=== PATIENT | male | born 1995 | race Caucasian/White ===

== ENCOUNTER 2025-05-29 13:34 | Emergency (ER) | payer OTHER, SELFPAY ==
--- OUTSIDE RECORDS SUMMARY | 2025-05-29 13:38 | XMS_ITS | Clinical Summary ---
Author Organization [facility] Address [address] [place] [address] Phone Care Team Providers Care [place] Hand Name Role Phone Unavailable Primary Care Provider Unavailabl e Allergies Active Allergy Reactions Criticality Noted Date Comments Morphine Other (see Comments) Reduces heart rate Medications Doxycycline Monohydrate 100 MG Tablet 100 mg BID for 7 days 14 Tab 07/27/2017 Active Active Problems No known active problems Family History Medical History Relation Name Comments Cancer Maternal Grandfather Diabetes Paternal Grandfather Diabetes Paternal Grandmother Relation Name Status Comments Maternal Grandfather Paternal Grandfather Paternal Grandmother Social History Tobacco Use Types Packs/Day Years Used Date Smoking Tobacco: Every Day Cigarettes Smokeless Tobacco: Never Tobacco Cessation:Ready to Q uit: Yes; Counseling Given: Yes Alcohol Use Standard Drinks/Week Comments Yes 0 (1 standard drink = 0.6 oz pur e alcohol) socially Sexually Active Control Partners Comments Yes Male Condom Female Sex and Gender Information Value Date Recorded Sex Assigned at Not on file Legal Sex Male 11:50 PM CDT Gender Identity Not on file Sexual Orientation Not on file Last Filed Vital Signs Vital Sign Reading Time Taken Comments Blood Pressure 110/66 07/26/2017 3:35 PM CDT Pulse 80 07/26/2017 3:35 PM CDT Temperature 37.8 C (100.1 F) 07/26/2017 3:35 PM CDT Respiratory Rate 18 07/26/2017 3:35 PM CDT Oxygen Saturation 97% 07/26/2017 3:35 PM CDT Inhaled Oxygen Concentration - - Weight 54.4 kg (120 lb) 07/26/2017 3:35 PM CDT Height 172.7 cm (5' 8) 07/26/2017 3:35 PM CDT Body Mass Index 18.25 07/26/2017 3:35 PM CDT Plan of Treatment Health Maintenance Due Date Last Done Comments Hepatitis C Virus (HCV) Screening 1995 TdaP Immunization 1995 Human Papillomavirus (HPV) Immunization (1 - Male 3-dose series) 2010 Hepatitis B Immunization (1 of 3 - 19+ 3-dose series) 2014 SARS-COV-2 Immunization ( - 2023- season) 2024 Influenza Immunization (Seas on Ended) 2025 Respiratory Syncytial Virus (RSV) Immunization (Adult) (1 - 1-dose 75+ series) 2070 Meningococcal Immunization (ACWY) Aged Out No longer eligible based on patient's age to complete this topic Pneumococcal Immunization Combined Aged Out No longer eligible based on patient's age to complete this topic Rotavirus Immunization Aged Out No lo nger eligible based on patient's age to complete this topic Insurance MEDICAID [employer]
--- OUTSIDE RECORDS SUMMARY | 2025-05-29 13:38 | XMS_ITS | Data Portability ---
Author Organization [facility] Address [address] [place] [address] Assessment No assessment recorded. Plan of Treatment Reminders Order Date Submit Date Provider Last Modified By Organization Details Last Modified Time Details Appointments None recorded. Lab CMP, serum or plasma 2022 023 SRINATH WOLFE, [address] [place] [address] [address], [address], [place], [address], 3 15:09:41 chlamydia trachomat is + neisseria gonorrhoe ae + trichomon as vaginalis DNA panel, KENNEY+probe , unspecifi ed specimen 2022 023 LYON MOUNT[place] YANETH, [address] [place], [place] [address]ric[address], [address], [place], [address], 3 15:09:41 urinalysi s complete, reflex culture 2022 023 L[place] YANETH, [address] [place] [address] [address], [address], [place], [address], 3 15:09:43 RPR (rapid plasma reagin), serum 2022 023 [place] YANETH, [address] [place] [address] [address], [address], [place], [address], 3 15:09:46 CBC w/ auto diff 2022 023 L[place] YANETH, [address] [place] [address] [address], [address], [place], [address], 3 15:09:44 TSH, ultra-sen sitive, serum 2022 023 SRINATH WOLFE, [address], [address], [place], [address], 3 15:09:42 HbA1c (hemoglob in A1c), blood 2022 023 SRINATH MARTINO, [address] [facility] [address], [place], [address], 3 15:09:44 HBsAg (hepatiti s B surface Ag), EIA, serum 2022 023 SRINATH MARTINODAR, [address] [place], [place] [address], [address], [place], [address], 3 15:09:45 Hepatitis C IgG Ab, qual, serum 2022 023 SRINATH [facility]ARTINODAR, [address] [facility] [address], [place], [address], 3 15:09:40 HIV 1 + 2, meaningfu l use set 2022 023 SRINATH SANDERSRASHEEDA, [address] [place], [place] [address], [address], [place], [address], 3 15:09:46 CBC 2018 019 SRINATH SANDERSRASHEEDA, [facility] [address], [address], [place], [address], 9 03:05:32 lipid panel, serum 2018 019 SRINATH SANDERSRASHEEDA, [facility] [address], [address], [place], [address], 9 03:05:33 CMP, serum or plasma 2018 019 SRINATH [facility], [address], [address], [place], [address], 9 03:05:33 Referral general surgeon referral - R inguinal hernia, possible umbilical hernia 2022 023 SRINATH Bryant MD, [address] [facility], [address], [place], [address], 3 09:36:00 psychiatr ist referral 2018 019 riley Hyatt MD, [address] [facility] , [address], [place], [address], 9 15:44:45 Procedures None recorded. Surgeries None recorded. Imaging CT, abdomen + pelvis, w/o contrast - Concern for abdominal and inguinal hernia 2022 023 [facility], [address] [facility] , [place], [address], 3 13:12:26 Medication Orders sertralin e 50 mg tablet 2018 019 [id number], [address] [place], [address], 3 11:37:26 Patient TargetsNo targets recorded. Patient Instructions Encounter Date Encounter Id Patient Instructions Last Modified By Organization Details Last Modified Time 12/10/2018 [id number] deciding about using medicines to quit smoking ssuthan Not available 12/10/2018 12:50:24 Quitting Tobacco : Care Instructions ssuthan Not available 12/10/2018 12:50:24 anxiety disorder : care instructions ssuthan Not available 12/10/2018 12:50:24 05/03/2023 [id number] Quitting Tobacco : Care Instructions [email or web address] Not available 05/08/2023 14:29:13 inguinal hernia: care instructions [email or web address] Not available 05/03/2023 12:30:50 HIV testing: car e instructions [email or web address] Not available 05/03/2023 12:30:48 Reason for Referral Psychiatrist Referral for Ge neralized anxiety disorder Referring Physician: Vitor Ramires, Internal Medicine, Encounter Date: 12/10/2018 General Surgeon Referral for Inguinal pain R inguinal hernia, possible umbilical hernia Referring Physician: Keara Brice, Family Medicine, Encounter Date: 05/03/2023 Results Created Date Observation Date Name Description Value Unit Range Abnormal Flag Note LastModifiedBy Organization Detail LastModifiedTime 05/03/2005/04/2023 HCV ANTIB ELBA RFX TO QUANT PCR HCV Ab Non Reacti ve nonrea ctive Not Available [facility] ([facility]) [address] [place], [address], 05/05/2023 15:09:40 05/03/20 23 05/05/2023 CT, NG, TRICH VAG BY KENNEY chlamydia by KENNEY Negati ve negati ve Not Available [facility] ([facility]) [address] [place], [address], 05/05/2023 15:09:41 05/03/20 23 05/05/2023 CT, NG, TRICH VAG BY KENNEY gonococcus by KENNEY Negati ve negati ve Not Available [facility] ([facility]) [address] [place], [address], 05/05/2023 15:09:41 05/03/20 23 05/05/2023 CT, NG, TRICH VAG BY KENNEY trich vag by KENNEY Negati ve negati ve Not Available [facility] ([facility]) [address] [place], [address], 05/05/2023 15:09:41 05/03/20 23 05/04/2023 COMP. METAB OLIC PANEL (14) glucose 105 mg/dL 70-99 above high normal Not Available [facility] ([facility]) [address] [place], [address], 05/05/2023 15:09:41 05/03/20 23 05/04/2023 COMP. METAB OLIC PANEL (14) BUN 11 mg/dL 6-20 Not Available [facility] ([facility]) [address] [place], [address], 05/05/2023 15:09:41 05/03/20 23 05/04/2023 COMP. METAB OLIC PANEL (14) creatinine 0.93 mg/dL 0.76-1 .27 Not Available [facility] ([facility]) [address] [place], [address], 05/05/2023 15:09:41 05/03/20 23 05/04/2023 COMP. METAB OLIC PANEL (14) eGFR 115 mL/mi n/1.7 3 >59 Not Available [facility] ([facility]) [address] [place], [address], 05/05/2023 15:09:41 05/03/20 23 05/04/2023 COMP. METAB OLIC PANEL (14) BUN/creatini ne ratio 12 9-20 Not Available [facility] ([facility]) [address] [facility] [place], [address], 05/05/2023 15:09:41 05/03/20 23 05/04/2023 COMP. METAB OLIC PANEL (14) sodium 141 mmol/ L 134-14 4 Not Available [facility] ([facility]) [address] [facility] [place], [address], 05/05/2023 15:09:41 05/03/20 23 05/04/2023 COMP. METAB OLIC PANEL (14) potassium 4.8 mmol/ L 3.5-5. 2 Not Available [facility] ([facility]) [address] [facility] [place], [address], 05/05/2023 15:09:41 05/03/20 23 05/04/2023 COMP. METAB OLIC PANEL (14) chloride 100 mmol/ L 96-106 Not Available [facility] ([facility]) [address] [facility] [place], [address], 05/05/2023 15:09:41 05/03/20 23 05/04/2023 COMP. METAB OLIC PANEL (14) carbon dioxide, total 23 mmol/ L 20-29 Not Available [facility] ([facility]) [address] [facility] [place], [address], 05/05/2023 15:09:41 05/03/20 23 05/04/2023 COMP. METAB OLIC PANEL (14) calcium 10.1 mg/dL 8.7-10 .2 Not Available [facility] ([facility]) [address] [facility], [place], [address], 05/05/2023 15:09:41 05/03/20 23 05/04/2023 COMP. METAB OLIC PANEL (14) protein, total 7.7 g/dL 6.0-8. 5 Not Available [facility] ([facility]) [address] [place], [address], 05/05/2023 15:09:41 05/03/20 23 05/04/2023 COMP. METAB OLIC PANEL (14) albumin 5.2 g/dL 4.1-5. 2 Not Available [facility] ([facility]) [address] [place], [address], 05/05/2023 15:09:41 05/03/20 23 05/04/2023 COMP. METAB OLIC PANEL (14) globulin, total 2.5 g/dL 1.5-4. 5 Not Available [facility] ([facility]) [address] [place], [address], 05/05/2023 15:09:41 05/03/20 23 05/04/2023 COMP. METAB OLIC PANEL (14) A/G ratio 2.1 1.2-2. 2 Not Available [facility] ([facility]) [address] [facility] [place], [address], 05/05/2023 15:09:41 05/03/20 23 05/04/2023 COMP. METAB OLIC PANEL (14) bilirubin, total 1.6 mg/dL 0.0-1. 2 above high normal Not Available [facility] ([facility]) [address] [place], [address], 05/05/2023 15:09:41 05/03/20 23 05/04/2023 COMP. METAB OLIC PANEL (14) alkaline phosphatase 149 IU/L 44-121 above high normal Not Available [facility] ([facility]) [address] [facility] [place], [address], 05/05/2023 15:09:41 05/03/20 23 05/04/2023 COMP. METAB OLIC PANEL (14) AST (SGOT) 41 IU/L 0-40 above high normal Not Available [facility] ([facility]) [address] [place], [address], 05/05/2023 15:09:41 05/03/20 23 05/04/2023 COMP. METAB OLIC PANEL (14) ALT (SGPT) 30 IU/L 0-44 Not Available [facility] ([facility]) [address] [place], [address], 05/05/2023 15:09:41 05/03/20 23 05/04/2023 TSH RFX ON ABNOR MAL TO FREE T4 TSH 1.860 uIU/m L 0.450- 4.500 Not Available [facility] ([facility]) [address] [place], [address], 05/05/2023 15:09:42 05/03/20 23 05/04/2023 UA/M W/RFL X CULTU RE, ROUTI NE specific gravity 1.017 1.005- 1.030 Not Available [facility] ([facility]) [address] [facility], [place], [address], 05/05/2023 15:09:43 05/03/20 23 05/04/2023 UA/M W/RFL X CULTU RE, ROUTI NE pH 5.5 5.0-7. 5 Not Available [facility] ([facility]) [address] [facility], [place], [address], 05/05/2023 15:09:43 05/03/20 23 05/04/2023 UA/M W/RFL X CULTU RE, ROUTI NE urine-color Yellow yellow Not Available [facility] ([facility]) [address] [facility], [place], [address], 05/05/2023 15:09:43 05/03/20 23 05/04/2023 UA/M W/RFL X CULTU RE, ROUTI NE appearance Clear clear Not Available [facility] ([facility]) [address] [facility], [place], [address], 05/05/2023 15:09:43 05/03/20 23 05/04/2023 UA/M W/RFL X CULTU RE, ROUTI NE WBC esterase Negati ve negati ve Not Available [facility] ([facility]) [address] [facility], [place], [address], 05/05/2023 15:09:43 05/03/20 23 05/04/2023 UA/M W/RFL X CULTU RE, ROUTI NE protein Negati ve negati ve/tra ce Not Available [facility] ([facility]) [address] [place], [address], 05/05/2023 15:09:43 05/03/20 23 05/04/2023 UA/M W/RFL X CULTU RE, ROUTI NE glucose Negati ve negati ve Not Available [facility] ([facility]) [address] [facility], [place], [address], 05/05/2023 15:09:43 05/03/20 23 05/04/2023 UA/M W/RFL X CULTU RE, ROUTI NE ketones Negati ve negati ve Not Available [facility] ([facility]) [address] [facility], [place], [address], 05/05/2023 15:09:43 05/03/20 23 05/04/2023 UA/M W/RFL X CULTU RE, ROUTI NE occult blood Negati ve negati ve Not Available [facility] ([facility]) [address] [facility], [place], [address], 05/05/2023 15:09:43 05/03/20 23 05/04/2023 UA/M W/RFL X CULTU RE, ROUTI NE bilirubin Negati ve negati ve Not Available [facility] ([facility]) [address] [facility], [place], [address], 05/05/2023 15:09:43 05/03/20 23 05/04/2023 UA/M W/RFL X CULTU RE, ROUTI NE urobilinogen ,semi-qn 0.2 mg/dL 0.2-1. 0 Not Available [facility] ([facility]) [address] [place], [address], 05/05/2023 15:09:43 05/03/20 23 05/04/2023 UA/M W/RFL X CULTU RE, ROUTI NE nitrite, urine Negati ve negati ve Not Available [facility] ([facility]) [address] [place], [address], 05/05/2023 15:09:43 05/03/20 23 05/04/2023 UA/M W/RFL X CULTU RE, ROUTI NE microscopic examination Commen t Micro scopi c follo ws if indic ated. Not Available [facility] ([facility]) [address] [place], [address], 05/05/2023 15:09:43 05/03/20 23 05/04/2023 UA/M W/RFL X CULTU RE, ROUTI NE microscopic examination See below: Micro scopi c was indic ated and was perfo rmed. Not Available [facility] ([facility]) [address] [place], [address], 05/05/2023 15:09:43 05/03/20 23 05/04/2023 UA/M W/RFL X CULTU RE, ROUTI NE urinalysis reflex Commen t This speci men will not refle x to a Urine Cultu re. Not Available [facility] ([facility]) [address] [facility], [place], [address], 05/05/2023 15:09:43 05/03/20 23 05/04/2023 HEMOG LOBIN A1C hemoglobin A1C 5.1 % 4.8-5. 6 Predi abete s: 5.7 - 6.4 Diabe haris: >6.4 Glyce fred contr ol for adult s with diabe haris: <7.0 Not Available [facility] ([facility]) [address] [facility], [place], [address], 05/05/2023 15:09:44 05/03/20 23 05/04/2023 CBC WITH DIFFE RENTI AL/PL ATELE T WBC 8.4 x10e3 /uL 3.4-10 .8 Not Available [facility] ([facility]) [address] [place], [address], 05/05/2023 15:09:44 05/03/20 23 05/04/2023 CBC WITH DIFFE RENTI AL/PL ATELE T RBC 5.60 x10e6 /uL 4.14-5 .80 Not Available [facility] ([facility]) [address] [place], [address], 05/05/2023 15:09:44 05/03/20 23 05/04/2023 CBC WITH DIFFE RENTI AL/PL ATELE T hemoglobin 17.0 g/dL 13.0-1 7.7 Not Available [facility] ([facility]) [address] [place], [address], 05/05/2023 15:09:44 05/03/20 23 05/04/2023 CBC WITH DIFFE RENTI AL/PL ATELE T hematocrit 49.8 % 37.5-5 1.0 Not Available [facility] ([facility]) [address] [place], [address], 05/05/2023 15:09:44 05/03/20 23 05/04/2023 CBC WITH DIFFE RENTI AL/PL ATELE T MCV 89 fL 79-97 Not Available [facility] ([facility]) [address] [place], [address], 05/05/2023 15:09:44 05/03/20 23 05/04/2023 CBC WITH DIFFE RENTI AL/PL ATELE T MCH 30.4 pg 26.6-3 3.0 Not Available [facility] ([facility]) [address] [place], [address], 05/05/2023 15:09:44 05/03/20 23 05/04/2023 CBC WITH DIFFE RENTI AL/PL ATELE T MCHC 34.1 g/dL 31.5-3 5.7 Not Available [facility] ([facility]) [address] [place], [address], 05/05/2023 15:09:44 05/03/20 23 05/04/2023 CBC WITH DIFFE RENTI AL/PL ATELE T RDW 13.4 % 11.6-1 5.4 Not Available [facility] ([facility]) [address] [place], [address], 05/05/2023 15:09:44 05/03/20 23 05/04/2023 CBC WITH DIFFE RENTI AL/PL ATELE T platelets 280 x10e3 /uL 150-45 0 Not Available [facility] ([facility]) [address] [facility], [place], [address], 05/05/2023 15:09:44 05/03/20 23 05/04/2023 CBC WITH DIFFE RENTI AL/PL ATELE T neutrophils 56 % notest ab. Not Available [facility] ([facility]) [address] [facility], [place], [address], 05/05/2023 15:09:44 05/03/20 23 05/04/2023 CBC WITH DIFFE RENTI AL/PL ATELE T lymphs 27 % notest ab. Not Available [facility] ([facility]) [address] [facility], [place], [address], 05/05/2023 15:09:44 05/03/20 23 05/04/2023 CBC WITH DIFFE RENTI AL/PL ATELE T monocytes 8 % notest ab. Not Available [facility] ([facility]) [address] [facility], [place], [address], 05/05/2023 15:09:44 05/03/20 23 05/04/2023 CBC WITH DIFFE RENTI AL/PL ATELE T eos 8 % notest ab. Not Available [facility] ([facility]) [address] [facility], [place], [address], 05/05/2023 15:09:44 05/03/20 23 05/04/2023 CBC WITH DIFFE RENTI AL/PL ATELE T basos 1 % notest ab. Not Available [facility] ([facility]) [address] [facility], [place], [address], 05/05/2023 15:09:44 05/03/20 23 05/04/2023 CBC WITH DIFFE RENTI AL/PL ATELE T neutrophils (absolute) 4.8 x10e3 /uL 1.4-7. 0 Not Available [facility] ([facility]) [address] [facility], [place], [address], 05/05/2023 15:09:44 05/03/20 23 05/04/2023 CBC WITH DIFFE RENTI AL/PL ATELE T lymphs (absolute) 2.2 x10e3 /uL 0.7-3. 1 Not Available [facility] ([facility]) [address] [facility], [place], [address], 05/05/2023 15:09:44 05/03/20 23 05/04/2023 CBC WITH DIFFE RENTI AL/PL ATELE T monocytes(ab solute) 0.7 x10e3 /uL 0.1-0. 9 Not Available [facility] ([facility]) [address] [place], [address], 05/05/2023 15:09:44 05/03/20 23 05/04/2023 CBC WITH DIFFE RENTI AL/PL ATELE T eos (absolute) 0.7 x10e3 /uL 0.0-0. 4 above high normal Not Available [facility] ([facility]) [address] [facility], [place], [address], 05/05/2023 15:09:44 05/03/20 23 05/04/2023 CBC WITH DIFFE RENTI AL/PL ATELE T baso (absolute) 0.0 x10e3 /uL 0.0-0. 2 Not Available [facility] ([facility]) [address] [place], [address], 05/05/2023 15:09:44 05/03/20 23 05/04/2023 CBC WITH DIFFE RENTI AL/PL ATELE T immature granulocytes 0 % notest ab. Not Available [facility] ([facility]) [address] [place], [address], 05/05/2023 15:09:44 05/03/20 23 05/04/2023 CBC WITH DIFFE RENTI AL/PL ATELE T immature grans (abs) 0.0 x10e3 /uL 0.0-0. 1 Not Available [facility] ([facility]) [address] [facility], [place], [address], 05/05/2023 15:09:44 05/03/20 23 05/04/2023 HBSAG SCREE N HBsAg screen Negati ve negati ve Not Available [facility] ([facility]) [address] [facility], [place], [address], 05/05/2023 15:09:45 05/03/20 23 05/04/2023 RPR, RFX QN RPR/C ONFIR M TP RPR Non Reacti ve nonrea ctive Not Available [facility] ([facility]) [address] [facility], [place], [address], 05/05/2023 15:09:46 05/03/20 23 05/04/2023 HIV AB/P2 4 AG WITH REFLE X HIV Ab/P24 Ag screen Non Reacti ve nonrea ctive HIV Negat oma HIV-1 /HIV- 2 antib odies and HIV-1 p24 antig en were NOT detec stevie. There is no labor atory evide nce of HIV infec tion. Not Available [facility] ([facility]) [address] [facility], [place], [address], 05/05/2023 15:09:46 05/03/20 23 05/04/2023 MICRO SCOPI C EXAMI NATIO N WBC None seen /hpf 0-5 Not Available [facility] ([facility]) [address] [place], [address], 05/05/2023 15:09:42 05/03/20 23 05/04/2023 MICRO SCOPI C EXAMI NATIO N RBC None seen /hpf 0-2 Not Available [facility] ([facility]) [address] [place], [address], 05/05/2023 15:09:42 05/03/20 23 05/04/2023 MICRO SCOPI C EXAMI NATIO N epithelial cells (non renal) None seen /hpf 0-10 Not Available [facility] ([facility]) [address] [facility], [place], [address], 05/05/2023 15:09:42 05/03/20 23 05/04/2023 MICRO SCOPI C EXAMI NATIO N casts None seen /lpf nonese en Not Available [facility] ([facility]) [address] [facility], [place], [address], 05/05/2023 15:09:42 05/03/20 23 05/04/2023 MICRO SCOPI C EXAMI NATIO N bacteria None seen nonese en/few Not Available [facility] ([facility]) [address] [facility], [place], [address], 05/05/2023 15:09:42 05/03/20 23 05/04/2023 INTER PRETA TION: interpretati on: Commen t Not infec stveie with HCV unles s early or acute infec tion is suspe cted (whic h may be delay ed in an immun ocomp romis ed indiv idual ), or other evide nce exist s to indic ate HCV infec tion. Not Available [facility] ([facility]) [address] [facility], [place], [address], 05/05/2023 15:09:39 05/13/20 23 05/13/2023 CT, abdom en + pelvi s, w/o contr ast No observ ation record ed. [email or web address] [address], [place], [address], 05/17/2023 11:04:58 Result Notes None recorded. Problems No Known Problems Procedures Surgical History Date Name Laterality Status Provider Name and Address Organization Details Recorded Time Heart Surgery completed ERNST Gonzalez [facility] 12/10/2018 12:07:46 Imaging Results None recorded. Procedure Notes None recorded. Medical Equipment None Reported. Allergies Allergen ID Allergen Name Allergen Category Reaction Reaction Severity Criticality Documentation Date Start Date Code Code System Note Provider Name and Address Organization Details Recorded Time 221101 morphine medicatio n Not available Not available Not available 12/10/2018 7052 RxNorm ERNST Griggs [facility] 9 12:06:10 Medications Name Sig Start Date Stop Date Status Note LastModified by Organization Details LastModified Time ibuprofen 600 mg tablet active Not Available Not Available Not Available sertraline 50 mg tablet Take 1 tablet every day by oral route. 05/03 completed Not Available Not Available Not Available naproxen 500 mg tablet TAKE 1 TABLET BY MOUTH TWICE DAILY WITH MEALS active Not Available Not Available No t Available Vitals Date Recorded Body height Body mass index (BMI) Body weight Heart rate Respiratory rate Body temperature Systolic And Diastolic Provider Name and Address Organization Details Last Updated DateTime 9 167.64 cm 20.6 kg/m2 07317.6 7 g 62 /min 14 /min 98.5 [degF] 112/86 mm[Hg] ERNST Griggs [facility] 9 12:09:59 Date Recorded Body height Body mass index (BMI) Body weight Body temperature Heart rate Respiratory rate Systolic And Diastolic Systolic And Diastolic Provider Name and Address Organization Details Last Updated DateTime 3 170.18 cm 22 kg/m2 80997.7 3 g 98.4 [degF] 76 /min 16 /min 141/101 mm[Hg] 142/101 mm[Hg] Carrie Ayala MA [facility] 3 11:54:10 Social History Question Answer Notes LastModified by Organizat ion Details LastModified Time Tobacco Smoking Status Current Every Day Smoker ERNST Gonzalez [facility] 12/10/2018 12:07:26 HIV Dx By [facility] No Informatio n not available 08/19/2019 HIV QI Project No Information not available 08/19/2019 RW URN [id number] Information no t available 08/19/2019 RWE Status Inactive Information no t available 08/19/2019 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 05/03/2023 Information not available 05/03/2023 How Much Tobacco Do You Smoke? 0.5 PPD [email or web address] Information not available 12/10/2018 Has Tobacco Cessation Counseling Been Provided? Yes Information not available 05/03/2023 Sex: Male Functional Status Question Answer Note LastModified by Organization D etails LastModified Time Do you or have you ever used any other forms of tobacco or nicotine? No Information not available 05/03/2023 Mental Status None recorded. Family History Relationship Description Onset Age of this Age Resolved Age Notes LastModified by Organization Details LastModified Time Father Hypertensive disorder [email or web address] Not available 11/27 12:06:47 Father Atrial fibrillation ssuthan Not available 12:49:26 Mother Anxiety [email or web address] Not availab le 12/10/2018 12:07:18 Sister Anxiety [email or web address] Not availab le 12/10/2018 12:07:18 Medical History No medical history recorded. Immunizations Vaccine Type Date Status Note Provider Nam e and Address Organization Details Recorded Time influenza, intradermal, quadrivalent, preservative free 9 completed Vitor Ramires MD Attn: Accounting,[address] [place], [address], [facility] 12/10/2018 12:50:49 Past Encounters Encounter ID Performer Location Encounter Start Date Encounter Closed Date Diagnosis/Indication Diagnosis SNOMED-CT Code Diagnosis ICD10 Code Diagnosis Note [id number] Vitor Ramires MD Tamika 14 IM 4 [facility] [address] [place] [address] 12/10/2018 11:11:44 12/11/2018 15:38:56 Generalized anxiety disorder 61988552 F41.1 with psychotic behaviour, latter is better. Empiricall y start on sertraline 50mg daily, aware of Jean PierreWill refer to Psychiatri , Has appt with a counselor in [place] tomorrow. Cannabis d ependence, episodic 367199705 F12.20 Recommend to stay away from it. 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 F17.200 Recommend to slow michelle and quit at the earliest- 1/2 PPD Adult heal th examination 103830400 Z00.00 Baseline labs [id number] MD Tamika GIPSON 14 IM 4 [facility] [address] [place] [address] 05/03/2023 10:39:52 05/04/2023 10:49:04 Inguinal pain [id number] R10.2 - Small R sided reducible inguinal hernia palpable, in addition to small periumbili yen hernia- No concern for incarcerat ed or stragnulat ed hernia at this time- No imaging done at ER to determine size- Will obtain CT a/p to assess for inguinal and periumbili yen hernia- STI and UTI screening obtained to rule out infection- General surgeon referral placed to discuss treatment options- Patient is an overall good candidate for surgery, provided BP is better controlled (see below) HIV screening [id number] Z11.4 Hepatitis C screening [id number] Z11.59 Hepatitis B screening required [id number] Z76.89 Elevated blood-pressure reading without diagnosis of hypertension [id number] R03.0 - BP 140/100 x2, BP was previously normal- BP wnl in ED visit- Possible component of anxiety, however patient has history of Cocaine use, currently in remission- Check CBC, TSH, A1c- BP cuff given, advised patient to monitor BP twice weekly and return with BP log- If BP elevated, plan to treat as BP needs to be in control for surgery Alcohol dependence [phone] F10.20 - Daily EtOH use, CAGE positive- Working on cutting back but currently using it to cope with anxiety- Check CMP- Will discuss further during next visit, advised cutting back Smoker [id number] F17.200 - Current daily smoking- Not interested in quitting at this time, will continue to discuss Health Concerns Section Related Observation LastModified by Organization Detai ls LastModified Time None Recorded Concern Status LastModified by Organization Details LastModified Time None Recorded Advance Directives Directive None Recorded Payers Insurance Date Sequence Insurance Name Policy Number Policy Sands Covered Member ID Sands Member ID Guarantor Name 04/27/2023 1 [place]PARTMENT [place] PUBLIC AID Damon Ramos [place] [id number] Damon Richard [place] 02/04/2019 1 *SELF PAY* Dustin bal Ramos [place] 04/27/2023 1 [facility] - DOS PRIOR TO 2021 (MEDICAID REPLACEMENT - HMO) Damon Ramos Dread [id number] Damon Ramos Dread 05/16/2023 1 [facility] (MEDICAID REPLACEMENT - HMO) [id number] Damon Ramos Dread [id number] Damon Richard [place] Notes Date Note Type Note Provider Name and Address Organization Details Recorded Time 12/10/2018 text/html Generic HPI TemplateReported bypatient.Notes:Here to establish care as a new pt.pt was hospitalized from 11/28- 12/05/18 and was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
--- OUTSIDE RECORDS SUMMARY | 2025-05-29 13:38 | XMS_ITS | Clinical Summary ---
Author Organization [facility] Address [address] [place] [address] Care Team Providers Care Shellfish Meat Separator Operator Name Role Phone No, Physician Primary Care Provider [phone] Allergies Active Allergy Reactions Criticality Noted Date Comments Morphine Medications folic acid (FOLVITE) 1 mg tabletIndication s:Folate Deficiency Take 1 tablet (1 mg total) by mouth daily for 2 doses 2 tablet 04/03/2024 Active metoprolol XL (TOPROL-XL) 25 mg extended release tablet Take 1 tablet (25 mg total) by mouth daily 30 tablet 11 04/03/2024 Active multivit vrfmaeui-vkav-QB -calcium (THERA-M) 9 mg iron-400 mcg tabletIndication s:Vitamin Deficiency Prevention Take 1 tablet by mouth daily 30 tablet 04/03/2024 Active thiamine (VITAMIN B1) 100 mg tabletIndication s:Thiamine Deficiency Take 1 tablet (100 mg total) by mouth daily for 2 doses 2 tablet 04/03/[address] (PROTONIX) 40 mg EC tabletIndication s:Mucositis Prophylaxis Take 1 tablet (40 mg total) by mouth daily 30 tablet 04/03/2024 Active naproxen (NAPROSYN) 500 mg tablet Take 1 tablet (500 mg total) by mouth 2 (two) times a day as needed for pain 04/02/2024 Active Active Problems Problem Noted Date Diagnosed Date Opiate overdose, accidental or unintentional, initial encounter 03/31/2024 Elevated troponin 03/31/2024 Drug abuse 11/30/2018 Assessment & Plan (11/30/2018 3:32 AM CLIENT LEADER): Reportedly patient had been using on off street drugs. Per report AV used LSD, unclear if he used any other synthetic drugs. UDS was positive only for cannabinoids. At this point patient is actively hallucinating, agitated and aggressive. Will need psychiatric stabilization. Social work was consulted. Patient currently is awaiting for the bed availability in the psychiatric unit for the transfer. Acute psychosis 11/30/2018 Assessment & Plan (11/30/2018 3:39 AM CLIENT LEADER): Patient presented to the hospital for agitation and aggressive behavior with active hallucinations. Despite of multiple antipsychotic medications patient did not have much improvement of mental status. Differential diagnosis at this point drug-induced psychosis versus new onset schizophrenia, versus bipolar disorder versus alcohol withdrawal etc. Will start the patient on DT prophylaxis given the history of frequent heavy binge drinking. Will start on folic acid and thiamine. Start on Ativan as needed for withdrawal symptoms and agitation. Will start on scheduled doses of Zyprexa 5 mg b.i.d. Will continue with 4 extremity restrainers since the patient is agitated and had risk for self-harm. Psychiatry was consulted, patient to be transferred to the psychiatric unit for further psychiatric stabilization and treatment pending of the bed availability. Altered mental status Encephalopathy Immunizations Immunization Administration Dates Next Due Tdap 07/07/2020(Deferred: Contraindication - pt received Tdap 01/18/2019),01/18/2019 Surgical History Surgery Date Site/Laterality Comments CARDIAC SURGERY septal defect Medical History Medical History Date Comments Drug abuse, daily use (HCC) Social History Tobacco Use Types Packs/Day Years Used Date Smoking Tobacco: Every Day Cigarettes 0.3 15.5 Started: 2009 Smokeless Tobacco: Never Tobacco Cessation:Ready to Q uit: Not Asked; Counseling Given: Not Answered Alcohol Use Standard Drinks/Week Comments Defer 0 (1 standard drink = 0.6 oz pur e alcohol) [facility] Utilities Answer Date Recorded In the past 12 months has [employer], gas, oil, or water [employer] threatened to shut off services in your home? No 04/01/2024 Social Connection and Isolat ion Panel [NHANES] Answer Date Recorded In a typical week, how many times do you talk on the phone with family, friends, or neighbors? More than three times a week 04/01/2024 How often do you get togethe r with friends or relatives? More than three times a week 04/01/2024 How often do you attend chur ch or scientologist services? Never 04/01/2024 Do you belong to any clubs o r organizations such as episcopalian groups, unions, fraternal or athletic groups, or school groups? No 04/01/2024 How often do you attend meet ings of the clubs or organizations you belong to? Never 04/01/2024 Are you , , di vorced, , never , or living with a partner? Never 04/01/2024 AUDIT-C Answer Date Recorded Q1: How often do you have a drink containing alc ohol? 2-3 times a week 03/31/2024 Q2: How many drinks containi ng alcohol do you have on a typical day when you are drinking? 5 or 6 03/31/2024 Q3: How often do you have si x or more drinks on one occasion? Less than monthly 03/31/2024 Overall Financial Resource Strain (CARDIA) Answe r Date Recorded How hard is it for you to pa y for the very basics like food, housing, medical care, and heating? Not very hard 04/01/2024 Hunger Vital Sign Answer Date Recorded Within the past 12 months, y ou worried that your food would run out before you got the money to buy more. Never true 04/01/20 24 Within the past 12 months, t he food you bought just didn't last and you didn't have money to get more. Never true 04/01/2024 PRAPARE - Transportation Answer Date Re corded In the past 12 months, has l ack of transportation kept you from medical appointments or from getting medications? Yes 04/2024 In the past 12 months, has l ack of transportation kept you from meetings, work, or from getting things needed for daily living? Yes 04/01/2024 Housing Stability Vital Sign Answer Zak e Recorded In the last 12 months, was t here a time when you were not able to pay the mortgage or rent on time? No 04/01/2024 In the last 12 months, how many places have you lived? 1 04/01/2024 In the last 12 months, was t here a time when you did not have a steady place to sleep or slept in a mcc (including now)? No 04/01/2024 Personal Safety Answer Date Recorded Have you ever been in or are you currently in a harmful physical or emotional relationship or is someone making you feel afraid or unsafe? Denies 03/31/2024 Education Answer Date Recorded What is the highest level of school you have completed or the highest degree you have received? GED or equivalent 04/2024 Sex and Gender Information Value Date Recorded Sex Assigned at Not on file Legal Sex Male 9:37 AM CLIENT LEADER Gender Identity Not on file Sexual Orientation Not on file Obstetrics History Last Filed Vital Signs Vital Sign Reading Time Taken Comments Blood Pressure 109/67 04/02/2024 4:38 PM CDT Pulse 96 04/02/2024 4:38 PM CDT Temperature 35.8 C (96.5 F) 04/02/2024 3:33 PM CDT Respiratory Rate 20 04/02/2024 3:33 PM CDT Oxygen Saturation 100% 04/02/2024 3:33 PM CDT Inhaled Oxygen Concentration - - Weight 67.2 kg (148 lb 3.2 oz) 04/02/2024 5:14 A M CDT Height 170.2 cm (5' 7) 03/31/2024 7:50 AM CDT Body Mass Index 23.21 03/31/2024 7:50 AM CDT Plan of Treatment Health Maintenance Due Date Last Done Comments Depression Screening 1995 Hepatitis C Screening 1995 Varicella Vaccines (1 of 2 - 13+ 2-dose series) 2008 Hepatitis B Screening 2013 Regular Well Visit/Exam 18-64 2013 Pneumococcal vaccine <65 (1 of 2 - PCV) 2014 Influenza Vaccine (#1) 2025 DTaP/Tdap/Td Vaccine (2 - Td or Tdap) 01/18/2029 01/18/2019 HPV Vaccines Aged Out No longer eligi ble based on patient's age to complete this topic Medical Devices Implanted Type Area Computer Architect Device Identifier Shelf Expiration Date Model / Serial / Lot Cordis Mynxgrip 5fr Balloon Catheter Integrate Sealant Lock Latex Free [id number] - [id number] Implanted:Qty: 1 on 04/02/2024 by Lydia Guevara MD at [facility] N/A: Groin Cordis 10/26/2025 [id number] / / [id number] Insurance [facility] PLAN ARTIS NATARAJAN [address] [place] [address] PLAN [facility] Advance Directives For more information, please contact: [phone] * Full Code (Latest Code Status on File) Date Activated Date Inactivated Comments 03/31/2024 7:47 AM 04/02/2024 9:36 PM * Full Code Date Activated Date Inactivated Comments 03/31/2024 7:47 AM 03/31/2024 7:47 AM * Full Code Date Activated Date Inactivated Comments 11/29/2018 8:33 PM 12/03/2018 2:44 PM * Full Code Date Activated Date Inactivated Comments 11/29/2018 1:23 PM 11/29/2018 8:33 PM Care Teams Shellfish Meat Separator Operator Relationship Specialty Start Date End Date No, Physician PCP - General 03/31/24
--- OUTSIDE RECORDS SUMMARY | 2025-05-29 13:38 | XMS_ITS | Referral Summary ---
Author Organization [facility] Address [address] [place] [address] Care Team Providers Care Mathematical Physicist Name Role Phone No, Physician Primary Care Provider [phone] Allergies Active Allergy Reactions Criticality Noted Date Comments Morphine Medications folic acid (FOLVITE) 1 mg tabletIndication s:Folate Deficiency Take 1 tablet (1 mg total) by mouth daily for 2 doses 2 tablet 04/03/2024 Active metoprolol XL (TOPROL-XL) 25 mg extended release tablet Take 1 tablet (25 mg total) by mouth daily 30 tablet 11 04/03/2024 Active multivit yxebyihu-xyrn-IB -calcium (THERA-M) 9 mg iron-400 mcg tabletIndication [...] 11/30/2018 Assessment & Plan (11/30/2018 3:32 AM LIMEHOUSE WORKER): Reportedly patient had been using on off [...] 11/30/2018 Assessment & Plan (11/30/2018 3:39 AM LIMEHOUSE WORKER): Patient presented to the hospital for agitation [...] 07/07/2020(Deferred: Contraindication - pt received Tdap 01/18/2019),01/18/2019 Social History Tobacco Use Types Packs/Day Years Used Date Smoking Tobacco: Every Day Cigarettes 0.3 15.5 Started: 2009 Smokeless Tobacco: Never Tobacco Cessation:Ready to Q uit: Not Asked; Counseling Given: Not Answered Alcohol Use Standard Drinks/Week Comments Defer 0 (1 standard drink = 0.6 oz pur e alcohol) [facility] Utilities Answer Date Recorded In the past 12 months has [employer], gas, oil, or water [employer] threatened to shut off services in your [...] week 04/01/2024 How often do you attend [facility] or evangelical services? Never 04/01/2024 Do you belong to any clubs o r organizations such as yarsanism groups, unions, fraternal or athletic groups, or [...] place to sleep or slept in a residential (including now)? No 04/01/2024 Personal Safety Answer [...] on file Legal Sex Male 9:37 AM LIMEHOUSE WORKER Gender Identity Not on file Sexual Orientation [...] 03/31/2024 7:50 AM CDT Plan of Treatment Not on file Medical Devices Implanted Type Area Risk Control Specialist Device Identifier Shelf Expiration Date Model / Serial / Lot Cordis Mynxgrip 5fr Balloon Catheter Integrate Sealant Lock Latex Free [id number] - [id number] Implanted:Qty: 1 on 04/02/2024 by Lydia Guevara MD at [facility] N/A: Groin Cordis 10/26/2025 [id number] / / [id number] Insurance [facility] PLAN [facility] Advance Directives For more information, please contact: [phone] * Full Code (Latest Code Status on File) Date Activated Date Inactivated Comments 03/31/2024 7:47 AM 04/02/2024 9:36 PM * Full Code Date Activated Date Inactivated Comments 03/31/2024 7:47 AM 03/31/2024 7:47 AM * Full Code Date Activated Date Inactivated Comments 11/29/2018 8:33 PM 12/03/2018 2:44 PM * Full Code Date Activated Date Inactivated Comments 11/29/2018 1:23 PM 11/29/2018 8:33 PM Care Teams Mathematical Physicist Relationship Specialty Start Date End Date No, Physician PCP - General 03/31/24
[2025-05-29 13:40] VITALS: BP 142/83; PULSE 86; RESP 16; TEMP 36.8; O2SAT 100
--- NOTE | 2025-05-29 13:46 | ED_ITS ---
HPI - General Adult General Stated complaint: poison shelli Time Seen by Provider: 05/29/25 13:48 Source: patient Mode of arrival: ambulatory Limitations: no limitations History of Present Illness HPI narrative: 29 y/o male presented for c/o rash to face and groin. First started to the groin about 4 days ago, following yard work. Started with eye swelling and facial rash yesterday. Has not taken anything for symptoms. Denies lip, tongue, or throat swelling, shortness of breath or wheezing. Denies changes to soap, detergent, lotion, or any other exposures. No one else in the house or any contacts with similar symptoms. Related Data Home Medications ?Medication ?Instructions ?Recorded ?Confirmed ?Last Taken ?Type No Home Medications 05/29/25 05/29/25 Unknown History Allergies Allergy/AdvReac Type Severity Reaction Status Date / Time morphine Allergy Intermediate Unknown Verified 05/29/25 13:52 Review of Systems Review of Systems: CONSTITUTIONAL: Denies body aches, fever, chills, or sweats. EYES: Denies visual changes, redness, or discharge. ENT: Denies rhinorrhea, congestion CARDIOVASCULAR: Denies chest pain, palpitations, or edema. RESPIRATORY: Denies cough or dyspnea. GASTROINTESTINAL: Denies abdominal pain, nausea, vomiting, or diarrhea. SKIN: per HPI MUSCULOSKELETAL: Denies back pain, joint pain, or myalgia. NEUROLOGIC: Denies headache, numbness, tingling, or weakness. PMFSH Comments At time of signature, I have reviewed and agree with nursing past medical, surgical, social and family history unless otherwise noted. Please see nursing chart for further information. There is no relevant family history pertinent to the presenting complaint Exam Narrative: GENERAL: Well-appearing HEAD: Normocephalic, atraumatic. EYES: conjunctivae clear, and EOMI. ENT: Mucous membranes moist. Oropharynx without edema, erythema or lesions. NECK: Supple. CHEST: Clear to auscultation. HEART: Regular rate and rhythm. SKIN: Warm, dry. scattered erythematous papular rash noted to face c/w contact dermatitis; mild eye swelling. honey colored crust noted to the nose. Swelling to the penile shaft. NEURO: Alert and oriented x3. Course Course Emergency Course: Patient is aware of diagnosis, understands and agrees to treatment plan. Anticipatory guidance given. Patient agrees to follow-up as directed and is aware of reasons to seek care at the emergency department. Portions of this record may have been created with voice recognition software Level of Care: Express Care Visit Vital Signs Vital signs: Reviewed Medical Decision Making MDM Narrative Medical decision making narrative: Discussed physical exam findings. Advised supportive measures and signs/symptoms to go to the ER. Pt is appropriate for outpt treatment and f/u. Differential Diagnosis Differential Diagnosis: Viral exanthema, contact dermatitis, allergic dermatitis, eczema, urticaria, insect bites, impetigo, tinea, folliculitis Discharge Plan Discharge Clinical Impression: Contact dermatitis Patient Disposition: Home Condition: Stable Instructions: Antibiotic Form, Poison Shelli (ED) Additional Instructions: Take steroids as directed. Yejs-wgv-iapabxp Benadryl every 8 hours as needed Cool compresses to the sites of itching, avoid hot water. Avoid scratching to reduce the risk of infection use ointment to the nose as prescribed Follow up with your primary care provider as needed in 1 week Go to the ER for worsening symptoms or concerns (lip, tongue, throat swelling/itching, trouble breathing etc) Patient Language: Dominican Prescriptions: New mupirocin 2 % ointment 1 applic topical BID 7 Days Qty: 22 0RF prednisone 20 mg tablet 20 mg PO DAILY Qty: 12 0RF Rx Instructions: take 3 tablets daily for 2 days, then 2 tablets daily for 2 days then 1 tablet daily for 2 days No Action No Home Medications Follow-up/Referrals: PHYSICIAN,BUTTON BROACHER [Primary Care Provider] - Stand Alone Forms: Work/School Release IP Time of Disposition: 13:59
== END 2025-05-29 14:00 | disposition home or self-care (01) ==
PROVIDERS: Emergency Provider Nurse Practitioner Family
DX: L25.9 Unspecified contact dermatitis, unspecified cause (principal)
CPT/HCPCS: 99203; G0463

== ENCOUNTER 2025-06-05 15:28 | Emergency (ER) | payer OTHER, SELFPAY ==
--- OUTSIDE RECORDS SUMMARY | 2025-06-05 15:31 | XMS_ITS | Referral Summary ---
Author Organization [facility] Address [address] [place] [address] Care Team Providers Care Remedy Developer Name Role Phone No, Physician Primary Care Provider [phone] Allergies Active Allergy Reactions Criticality Noted Date Comments Morphine Medications folic acid (FOLVITE) 1 mg tabletIndication s:Folate Deficiency Take 1 tablet (1 mg total) by mouth daily for 2 doses 2 tablet 04/03/2024 Active metoprolol XL (TOPROL-XL) 25 mg extended release tablet Take 1 tablet (25 mg total) by mouth daily 30 tablet 11 04/03/2024 Active multivit tkrqvntf-abxa-PE -calcium (THERA-M) 9 mg iron-400 mcg tabletIndication [...] 11/30/2018 Assessment & Plan (11/30/2018 3:32 AM METAL FURNITURE REPAIRER): Reportedly patient had been using on off [...] 11/30/2018 Assessment & Plan (11/30/2018 3:39 AM METAL FURNITURE REPAIRER): Patient presented to the hospital for agitation [...] drink = 0.6 oz pur e alcohol) [facility] Utilities Answer Date Recorded In the past 12 months has [employer], gas, oil, or water [employer] threatened to shut off services in your [...] week 04/01/2024 How often do you attend [facility] or mormon services? Never 04/01/2024 Do you belong to any clubs o r organizations such as muslim groups, unions, fraternal or athletic groups, or [...] place to sleep or slept in a snf (including now)? No 04/01/2024 Personal Safety Answer [...] on file Legal Sex Male 9:37 AM METAL FURNITURE REPAIRER Gender Identity Not on file Sexual Orientation [...] on file Medical Devices Implanted Type Area Vacuum Plastic Forming Machine Operator Device Identifier Shelf Expiration Date Model / Serial / Lot Cordis Mynxgrip 5fr Balloon Catheter Integrate Sealant Lock Latex Free [id number] - [id number] Implanted:Qty: 1 on 04/02/2024 by Lydia Guevara MD at [facility] N/A: Groin Cordis 10/26/2025 [id number] / / [id number] Insurance [facility] PLAN [facility] Advance Directives For more information, please contact: [phone] * Full Code (Latest Code Status on File) Date Activated Date Inactivated Comments 03/31/2024 7:47 AM 04/02/2024 9:36 PM * Full Code Date Activated Date Inactivated Comments 03/31/2024 7:47 AM 03/31/2024 7:47 AM * Full Code Date Activated Date Inactivated Comments 11/29/2018 8:33 PM 12/03/2018 2:44 PM * Full Code Date Activated Date Inactivated Comments 11/29/2018 1:23 PM 11/29/2018 8:33 PM Care Teams Remedy Developer Relationship Specialty Start Date End Date No, Physician PCP - General 03/31/24
--- OUTSIDE RECORDS SUMMARY | 2025-06-05 15:31 | XMS_ITS | Clinical Summary ---
Author Organization [facility] Address [address] [place] [address] Phone Care Team Providers Care Production Line Mechanic Name Role Phone Unavailable Primary Care Provider [...] - 19+ 3-dose series) 2014 SARS-COV-2 Immunization (1 - 2023- season) 2024 Influenza Immunization (#1) 2025 Respiratory Syncytial Virus (RSV) Immunization (Adult) [...]
--- OUTSIDE RECORDS SUMMARY | 2025-06-05 15:31 | XMS_ITS | Clinical Summary ---
Author Organization [facility] Address [address] [place] [address] Care Team Providers Care Plug Maker Name Role Phone No, Physician Primary Care Provider Allergies Active Allergy Reactions Criticality Noted Date Comments Morphine Medications folic acid (FOLVITE) 1 mg tabletIndication s:Folate Deficiency Take 1 tablet (1 mg total) by mouth daily for 2 doses 2 tablet 04/03/2024 Active metoprolol XL (TOPROL-XL) 25 mg extended release tablet Take 1 tablet (25 mg total) by mouth daily 30 tablet 11 04/03/2024 Active multivit jhjgmeaj-kzps-EC -calcium (THERA-M) 9 mg iron-400 mcg tabletIndication [...] 11/30/2018 Assessment & Plan (11/30/2018 3:32 AM BUTT SAWYER): Reportedly patient had been using on off [...] 11/30/2018 Assessment & Plan (11/30/2018 3:39 AM BUTT SAWYER): Patient presented to the hospital for agitation [...] drink = 0.6 oz pur e alcohol) [facility] Utilities Answer Date Recorded In the past 12 months has [employer], gas, oil, or water [employer] threatened to shut off services in your [...] often do you attend chur ch or temple services? Never 04/01/2024 Do you belong to any clubs o r organizations such as mandaeism groups, unions, fraternal or athletic groups, or [...] place to sleep or slept in a prison (including now)? No 04/01/2024 Personal Safety Answer [...] on file Legal Sex Male 9:37 AM BUTT SAWYER Gender Identity Not on file Sexual Orientation [...] this topic Medical Devices Implanted Type Area Gas Main Fitter Helper Device Identifier Shelf Expiration Date Model / Serial / Lot Cordis Mynxgrip 5fr Balloon Catheter Integrate Sealant Lock Latex Free [id number] - [id number] Implanted:Qty: 1 on 04/02/2024 by Lydia Guevara MD at [facility] N/A: Groin [employer]is 10/26/2025 [id number] / / [id number] Insurance [facility] PLAN ART[employer] NATARAJAN [id number] [place] [address] PLAN [facility] Advance Directives For more information, please contact: [phone] * Full Code (Latest Code Status on File) Date Activated Date Inactivated Comments 03/31/2024 7:47 AM 04/02/2024 9:36 PM * Full Code Date Activated Date Inactivated Comments 03/31/2024 7:47 AM 03/31/2024 7:47 AM * Full Code Date Activated Date Inactivated Comments 11/29/2018 8:33 PM 12/03/2018 2:44 PM * Full Code Date Activated Date Inactivated Comments 11/29/2018 1:23 PM 11/29/2018 8:33 PM Care Teams Plug Maker Relationship Specialty Start Date End Date No, Physician PCP - General 03/31/24
[2025-06-05 15:40] VITALS: BP 146/79; PULSE 102; RESP 16; TEMP 37; O2SAT 100
--- NOTE | 2025-06-05 15:40 | ED_ITS ---
HPI - Skin/Abscess/Foreign Bdy General Chief complaint: Skin/Abscess/Foreign Body Stated complaint: poison wilma Time Seen by Provider: 06/05/25 15:40 Source: patient Mode of arrival: ambulatory Limitations: no limitations History of Present Illness HPI narrative: 29 y/o male presented for c/o itchy red rash to bilateral hips and abdomen. Onset 2 days. Has not taken anything for symptoms. Pt was seen in clinic on 05/29 for poison wilma, and says he completed the steroid taper as prescribed. Denies lip, tongue, or throat swelling, shortness of breath or wheezing. Denies changes to soap, detergent, lotion, or any other exposures. No one else in the house or any contacts with similar symptoms. Related Data Allergies Allergy/AdvReac Type Severity Reaction Status Date / Time morphine Allergy Intermediate Unknown Verified 05/29/25 13:52 Review of Systems Review of Systems: CONSTITUTIONAL: Denies body aches, fever, chills, or sweats. EYES: Denies visual changes, redness, or discharge. ENT: Denies rhinorrhea, congestion CARDIOVASCULAR: Denies chest pain, palpitations, or edema. RESPIRATORY: Denies cough or dyspnea. GASTROINTESTINAL: Denies abdominal pain, nausea, vomiting, or diarrhea. SKIN: per HPI MUSCULOSKELETAL: Denies back pain, joint pain, or myalgia. NEUROLOGIC: Denies headache, numbness, tingling, or weakness. PMFSH Comments At time of signature, I have reviewed and agree with nursing past medical, surgical, social and family history unless otherwise noted. Please see nursing chart for further information. There is no relevant family history pertinent to the presenting complaint Exam Narrative: GENERAL: Well-appearing HEAD: Normocephalic, atraumatic. EYES: conjunctivae clear, and EOMI. ENT: Mucous membranes moist. Oropharynx without edema, erythema or lesions. NECK: Supple. No lymphadenopathy CHEST: Clear to auscultation. HEART: Regular rate and rhythm. SKIN: Warm, dry. Bilateral anterior hips with slightly raised erythematous patches approx 6x3cm, three scattered linear slightly raised erythematous patches to the abdomen NEURO: Alert and oriented x3. Course Course Emergency Course: Patient is aware of diagnosis, understands and agrees to treatment plan. Anticipatory guidance given. Patient agrees to follow-up as directed and is aware of reasons to seek care at the emergency department. Portions of this record may have been created with voice recognition software Level of Care: Express Care Visit Vital Signs Vital signs: Reviewed MDM - Skin/Abscess/Foreign Bdy MDM Narrative Medical decision making narrative: Discussed physical exam findings c/w contact dermatitis to bilateral hips and abdomen. Rx triamcinolone and pepcid, pt will take otc antihistamine. Advised supportive measures and signs/symptoms to go to the ER. Pt is appropriate for outpt treatment and f/u. Instructed patient to go to nearest ER immediately for any worsening symptoms including but not limited to: fever, spreading rash, pain, sore throat, heada vira, dizziness, chest pain, trouble breathing, or any symptoms concerning to the patient. Differential Diagnosis Differential diagnosis: Likely abscess of skin or subcutaneous tissue, viral exanthem, dermatophytosis, urticaria, herpes zoster, cellulitis, eczema, insect bites, impetigo and contact dermatitis Discharge Plan Discharge Clinical Impression: Contact dermatitis Qualifiers: Contact dermatitis type: unspecified Contact dermatitis trigger: unspecified trigger Qualified Code(s): L25.9 - Unspecified contact dermatitis, unspecified cause Patient Disposition: Home Condition: Stable Instructions: Antibiotic Form, Contact Dermatitis (ED) Additional Instructions: Take Pepcid as directed. Benadryl every 8 hours as needed for itching You can apply anti-itch cream such as calamine lotion, hydrocortisone or Ivydry to the rash as needed Cool compresses to the sites of itching, avoid hot water. Avoid scratching to reduce the risk of infection Follow up with your primary care provider as needed in 1 week Go to the ER for worsening symptoms or concerns (lip, tongue, throat swelling/itching, trouble breathing etc) Patient Language: Luxembourgish Prescriptions: New famotidine [Pepcid] 40 mg tablet 40 mg PO DAILY Qty: 10 0RF triamcinolone acetonide 0.1 % cream 1 applic topical TID 10 Days Qty: 30 0RF No Action mupirocin 2 % ointment 1 applic topical BID 7 Days Qty: 22 0RF prednisone 20 mg tablet 20 mg PO DAILY Qty: 12 0RF Rx Instructions: take 3 tablets daily for 2 days, then 2 tablets daily for 2 days then 1 tablet daily for 2 days Follow-up/Referrals: PHYSICIAN,[facility]PER[facility]OR [Primary Care Provider] -
== END 2025-06-05 15:52 | disposition home or self-care (01) ==
PROVIDERS: Emergency Provider Nurse Practitioner Family
DX: L25.9 Unspecified contact dermatitis, unspecified cause (principal)
CPT/HCPCS: 99213; G0463